=== PATIENT | female | born 1965 | race Caucasian/White ===

== ENCOUNTER 2020-11-22 09:28 | Day surgery (SDC) | payer BC, OTHER ==
[2020-11-18 16:01] VITALS: BMI 31.1
[~2020-11-22 09:28] MED LIST: ACETAMINOPHEN TAB 500 MG TAB PO PRN; DEXAMETHASONE SOD PHOSPHATE 4 MG/ML 1 ML VIAL IV ONE; HEPARIN SODIUM,PORCINE/PF 5,000 UNIT/0.5 ML SYRINGE SQ PRN; LACTATED RINGERS 1,000 ML IV SCH; LIDOCAINE 1% (10MG/ML) FOR IV START INTRADERMA PRN; ONDANSETRON 4 MG/2 ML VIAL IVP ONE; Pre Op ABX Message 1 EACH MISC MISCELLANE ONE; SCOPOLAMINE 1.5MG/72HR PATCH TRANSDERM ONE
[2020-11-22] MEDS ORDERED: LACTATED RINGERS 1,000 ML IV ONE ×2 (10:10)
[2020-11-22] MEDS ORDERED: NEOSTIGMINE 1 MG/ML 10 ML VIAL ONE (10:46)
[2020-11-22] MEDS ORDERED: ROCURONIUM 10 MG/ML (5 ML VIAL) IV ONE (10:46)
[2020-11-22] MEDS ORDERED: PROPOFOL 10 MG/ML 20 ML VIAL IV ONE (10:46)
[2020-11-22] MEDS ORDERED: fentaNYL (PF) 50 MCG/ML 2 ML AMP ONE (10:46)
[2020-11-22] MEDS ORDERED: GLYCOPYRROLATE 0.2 MG/ML 2 ML VIAL ONE (10:46)
[2020-11-22] MEDS ORDERED: SUCCINYLCHOLINE CHLORIDE 100 MG/5 ML SYR IV ONE (10:46)
[2020-11-22] MEDS ORDERED: LIDOCAINE 1% INJ 10MG/ML (20 ML MDV) ONE (10:46)
[2020-11-22] MEDS ORDERED: MIDAZOLAM 2 MG/2 ML VIAL ONE (10:46)
[2020-11-22] MEDS ORDERED: SODIUM CHLORIDE 0.9% 100 ML with ceFAZolin 2,000 MG IV ONE ×2 (10:51)
[2020-11-22] MEDS ORDERED: BUPIVACAINE (PF) 0.25% 30 ML VIAL SQ ONE ×2 (11:21)
[2020-11-22] MEDS ORDERED: GELATIN SPONGE,ABSORB (LARGE) 1 EACH SPONGE TOPICAL ONE (11:28)
[2020-11-22] MEDS ORDERED: HYDROmorphone 0.5 MG/0.5 ML SYRINGE IVP PRN (11:50)
[2020-11-22] MEDS ORDERED: NALOXONE 0.4 MG/ML 1 ML VIAL IV PRN (11:50)
[2020-11-22] MEDS ORDERED: HYDROcodone/APAP 5-325MG 1 EACH TAB PO PRN (11:50)
[2020-11-22 11:58] VITALS: TEMP 97
[2020-11-22] MEDS: HYDROmorphone 0.5 MG/0.5 ML SYRINGE IVP PRN ×2 (12:03→12:12)
--- NOTE | 2020-11-22 12:18 | P.OP ---
Date of Procedure: 11/22/20 Procedure(s) Performed: PREOPERATIVE DIAGNOSIS: Symptomatic internal and external hemorrhoids POSTOPERATIVE DIAGNOSIS: Same PROCEDURE: Internal/external hemorrhoidectomy 2 columns SURGEON: Devonte EBL: Toshia Perez ANESTHESIA: Gen. COMPLICATIONS: None OPERATIVE PROCEDURE: Patient placed in the prone jackknife position after general anesthesia was achieved. The patient had the largest hemorrhoid group in the right anterolateral location. A 3-0 chromic stitch was used to ligate the hemorrhoidal vein feeding this complex. An elliptical incision was then made using a combination of scalpel and electrocautery. The hemorrhoid itself was then removed using both cautery and the harmonic scalpel. The 3-0 chromic stitch was then used to close the incision site. The patient also had a prominent hemorrhoidal complex in the anterior position. This was excised in a similar fashion and closed again using the 3-0 chromic stitch. A Gelfoam roll was placed within the distal rectum after inspecting for bleeding. Quarter percent Marcaine solution was used circumferentially. DISPOSITION: Stable to recovery room
[2020-11-22 13:00] VITALS: RESP 16
[2020-11-22 13:44] VITALS: BP 112/75; PULSE 61
== END 2020-11-22 14:00 | disposition home or self-care (01) ==
LOC: OR 09:28
PROVIDERS: ATTEND Surgery
DX: K64.8 Other hemorrhoids (principal); K64.4 Residual hemorrhoidal skin tags; K62.1 Rectal polyp; Z87.891 Personal history of nicotine dependence; K21.9 Gastro-esophageal reflux disease without esophagitis; K44.9 Diaphragmatic hernia without obstruction or gangrene
CPT/HCPCS: 88304; 46930; J2250; J1100; J2710; J2405; J0690; J2001; J3010; J0330; J2704; J1170; J1644